=== PATIENT | female | born 1960 | race Hispanic/Latino ===

== ENCOUNTER 2017-08-15 07:29 | Day surgery (SDC) | payer MEDICAID ==
[2017-01-25 12:59] VITALS: BMI 24.1
[2017-08-15] MEDS ORDERED: Lactated Ringer's 500 ML IV ONE (07:44)
[2017-08-15] MEDS ORDERED: Propofol 10 mg/ml Inj (20 ML) ONE ×2 (07:52→08:32)
[2017-08-15 09:01] VITALS: O2SAT 100
[2017-08-15 09:19] VITALS: BP 116/69; PULSE 67; RESP 18; TEMP 96.2
== END 2017-08-15 12:51 | disposition home or self-care (01) ==
LOC: H.ENDO 07:29
PROVIDERS: ATTEND Internal Medicine Gastroenterology
DX: Z80.0 Family history of malignant neoplasm of digestive organs (principal); D12.3 Benign neoplasm of transverse colon; D12.4 Benign neoplasm of descending colon; K63.89 Other specified diseases of intestine; K64.1 Second degree hemorrhoids; K31.7 Polyp of stomach and duodenum; K29.50 Unspecified chronic gastritis without bleeding; K20.9 Esophagitis, unspecified; R13.10 Dysphagia, unspecified; K22.8 Other specified diseases of esophagus; K31.89 Other diseases of stomach and duodenum
CPT/HCPCS: 43239; 45380; 45385; 88305; J2001; J2704; J7120